=== PATIENT | male | born 1975 | race Caucasian/White ===

== ENCOUNTER 2022-11-13 17:53 | Emergency (ER) | payer BC, SELFPAY ==
[2022-11-13] VITALS (13 sets, daily range): BP systolic 127–151; BP diastolic 79–91; PULSE 49–74; RESP 9–27; TEMP 36.7; O2SAT 95–98; BMI 28.8
--- NOTE | 2022-11-13 18:01 | DI.RAD.S_ITS ---
PROCEDURE: XR CHEST 1V INDICATIONS: chest pain TECHNIQUE: One view of the chest was acquired. COMPARISON: None. FINDINGS: Surgical changes and devices: None. Lungs and pleura: Lungs are clear. No pleural effusions or pneumothorax. Mediastinum: Mediastinal contours appear normal. Heart size is normal. Bones and chest wall: No suspicious bony lesions. Overlying soft tissues appear unremarkable. IMPRESSION: No acute cardiopulmonary disease. Dictated by: Kwame Correia M.D. on 11/13/2022 at 18:31 Approved by: Kwame Correia M.D. on 11/13/2022 at 18:31
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
[2022-11-13 18:18] LABS: Add Manual Diff / Slide Review NO; Basophils Absolute Auto 0 /uL (0-100); Basophils Percent Auto 0.6 % (0-2); Eosinophils Absolute Auto 100 /uL (0-450); Eosinophils Percent Auto 0.9 % (2-4); Hematocrit 44.6 % (41-53); Hemoglobin 15.9 g/dL (13.5-17.5); Lymphocytes Absolute Auto 1500 /uL (1100-4500); Lymphocytes Percent Auto 26.7 % (25-40); Mean Corpuscular HGB Conc 35.8 % (30-36); Mean Corpuscular Hemoglobin 31.1 PG (26-34); Mean Corpuscular Volume 86.9 fL (80-100); Monocytes Absolute Auto 500 /uL (0-900); Monocytes Percent Auto 9.8 % (3-14); Neutrophils Absolute Auto 3400 /uL (1500-7000); Platelet Count 157 X10^3/uL (150-400); Red Blood Cell Count 5.13 X10^6/uL (4.5-5.9); Red Cell Distribution Width 13.1 % (11.6-14.8); White Blood Cell Count 5.5 X10^3/uL (4.5-11.0)
[2022-11-13 18:27] LABS: INR 1.1 (0.9-1.3); Prothrombin Time 12.7 SECONDS (10.1-12.7)
[2022-11-13 18:29] LABS: PTT Partial Thromboplastin Tim 30 SECONDS (26-36)
[2022-11-13 18:31] LABS: Alanine Aminotransferase 37 IU/L (<50); Alkaline Phosphatase 83 U/L (38-126); Aspartate Aminotransferase 49 IU/L (17-59); Calcium 9.4 mg/dL (8.4-10.2); Carbon Dioxide 30 mmol/L (22-32); Chloride 102 mmol/L (98-107); Creatine Kinase 112 U/L (55-170); Estimated Glomerular Filt Rate > 60 mL/min (>60); Glucose 87 mg/dL (70-100); Lipase 75 U/L (23-300); Magnesium 2.2 mg/dL (1.6-2.3); Sodium 140 mmol/L (137-145)
[2022-11-13 18:43] LABS: Troponin I 0.023 ng/mL (0.01-0.034)
[2022-11-13 18:48] LABS: Albumin 4.8 g/dL (3.5-5.0); Albumin Globulin Ratio 1.5 (1.0-2.8); BUN Creatinine Ratio 21.2 (6-22); Bilirubin Total 0.9 mg/dL (0.2-1.3); Blood Urea Nitrogen 25 mg/dL (9-20); Globulin 3.1 g/dL (1.7-4.1); HEMOLYSIS 90 (0-50); Potassium 4.4 mmol/L (3.4-5.1); Total Protein 7.9 g/dL (6.3-8.2)
[2022-11-13 20:04] LABS: C-Reactive Protein Quant < 0.5 mg/dL (<1.0)
[2022-11-13 20:11] LABS: Erythrocyte Sedimentation Rate 2 MM/HR (0-15)
[2022-11-13 21:46] LABS: Creatine Kinase 96 U/L (55-170)
== END 2022-11-13 22:24 | disposition home or self-care (01) ==
PROVIDERS: Emergency Medicine; Emergency Provider Emergency Medicine
DX: R07.89 Other chest pain (principal); R00.2 Palpitations
CPT/HCPCS: 36415; 71045; 80053; 82550; 83690; 83735; 84484; 85025; 85610; 85651; 85730; 86140; 93005; 93010; 99284